=== PATIENT | female | born 2000 | race African-American/Black ===

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

== ENCOUNTER 2019-10-11 11:57 | Emergency (ER) | payer MEDICAID ==
[~2019-10-11] VITALS: Ht 160 cm; Wt 68.0 kg
[2019-10-11 12:26] VITALS: BP 106/61
== END 2019-10-11 13:51 | disposition home or self-care (01) ==
LOC: ER 11:57
DX: B00.82 Herpes simplex myelitis (principal)